=== PATIENT | female | born 1985 | race African-American/Black ===

== ENCOUNTER 2016-04-16 22:22 | Emergency (ER) | payer OTHER ==
[2016-04-16 22:56] VITALS: BP 120/67; PULSE 82; TEMP 98.2; BMI 23.3
--- NOTE | 2016-04-16 23:47 | PDOC ---
History of Present Illness - General Chief Complaint: Cold Symptoms Stated Complaint: COLD SYMPTOMS Time Seen by Provider: 04/16/16 23:44 History Source: Patient Exam Limitations: No Limitations - History of Present Illness Timing/Duration: reports: week Possible Cause: Yes: no prior episodes Associated Symptoms: reports: cough. denies: earache, fever/chills, nasal drainage, shortness of breath, sinus infection, sore throat Past History - Travel Traveled outside of the country in the last 30 days: No Close contact w/someone who was outside of country & ill: No - Past Medical History Allergies/Adverse Reactions: Allergies Allergy/AdvReac Type Severity Reaction Status Date / Time Penicillins Allergy Verified 04/16/16 22:53 Home Medications: Ambulatory Orders Valacyclovir HCl [Valtrex -] 500 mg PO DAILY 04/16/16 Other medical history: denies - Psycho/Social/Smoking Cessation Hx Anxiety: No Suicidal Ideation: No Smoking History: Current every day smoker Have you smoked in the past 12 months: Yes Number of Cigarettes Smoked Daily: 10 Information on smoking cessation initiated: Yes 'Breaking Loose' booklet given: 04/16/16 Hx Alcohol Use: Yes Drug/Substance Use Hx: Yes Substance Use Type: Marijuana Respiratory Specific PMHX - Complaint Specific PMHX Angina: No Bronchitis: No Pneumonia: No Review of Systems - Review of Systems Able to Perform ROS?: Yes Comments:: 04/16/16 23:45 CONSTITUTIONAL: Absent: fever, chills, diaphoresis, generalized weakness, malaise, loss of appetite HEENT: Absent: rhinorrhea, nasal congestion, throat pain, throat swelling, difficulty swallowing, mouth swelling, ear pain, eye pain, visual Changes CARDIOVASCULAR: Absent: chest pain, loss of consciousness, palpitations, irregular heart rate, peripheral edema RESPIRATORY: +cough Absent: shortness of breath, dyspnea with exertion, orthopnea, wheezing, stridor, hemoptysis GASTROINTESTINAL: Absent: abdominal pain, abdominal distension, nausea, vomiting, diarrhea, constipation, melena, hematochezia GENITOURINARY: Absent: dysuria, frequency, urgency, hesitancy, hematuria, flank pain, genital pain MUSCULOSKELETAL: Absent: myalgia, arthralgia, joint swelling SKIN: Absent: rash, itching, pallor HEMATOLOGIC/IMMUNOLOGIC: Absent: easy bleeding, easy bruising, lymphadenopathy, frequent infections ENDOCRINE: Absent: unexplained weight gain, unexplained weight loss, heat intolerance, cold intolerance NEUROLOGIC: Absent: headache, focal weakness or paresthesias, dizziness, unsteady gait, seizure, mental status changes, bladder or bowel incontinence PSYCHIATRIC: Absent: anxiety, depression, suicidal or homicidal ideation, hallucinations. Is the patient limited Thai proficient: No *Physical Exam - Vital Signs Last Vital Signs Temp Pulse Resp BP Pulse Ox 98.2 F 82 18 120/67 84 L 04/16/16 22:54 04/16/16 22:54 04/16/16 22:54 04/16/16 22:54 04/16/16 22:54 - Physical Exam Comments: 04/16/16 23:45 GENERAL: Well developed, well nourished. Awake and alert. No acute distress. HEENT: Normocephalic, atraumatic. PERRLA, EOMI. No conjunctival pallor. Sclera are non- icteric. Moist mucous membranes. Oropharynx is clear. NECK: Supple. Full ROM. No JVD. Carotid pulses 2+ and symmetric, without bruits. No thyromegaly. No lymphadenopathy. CARDIOVASCULAR: Regular rate and rhythm. No murmurs, rubs, or gallops. Distal pulses are 2+ and symmetric. PULMONARY: No evidence of respiratory distress. Lungs clear to auscultation bilaterally. No wheezing, rales or rhonchi. ABDOMINAL: Soft. Non-tender. Non-distended. No rebound or guarding. No organomegaly. Normoactive bowel sounds. MUSCULOSKELETAL Normal range of motion at all joints. No bony deformities or tenderness. No CVA tenderness. EXTREMITIES: No cyanosis. No clubbing. No edema. No calf tenderness. SKIN: Warm and dry. Normal capillary refill. No rashes. No jaundice. NEUROLOGICAL: Alert, awake, appropriate. Cranial nerves 2-12 intact. No deficits to light touch and temperature in face, upper extremities and lower extremities. No motor deficits in the in face, upper extremities and lower extremities. Normoreflexic in the upper and lower extremities. Normal speech. Toes are down- going bilaterally. Gait is normal without ataxia. PSYCHIATRIC: Cooperative. Good eye contact. Appropriate mood and affect. Progress Note - Progress Note Progress Note: 30-year-old female presents to the emergency department complaining of an intermittent cough 1 week. Patient states when she initially had the cough, she felt worse and has been taking [id number] medication which helped. Patient came in today because the cough did not 100% subside but is getting close. She denies any fever, chills, nauseavomiting/diarrhea, sore throat, rhinorrhea, nasal congestion, sore throat chest pain, shortness of breath, abdominal pains, flank pain, vaginal discharge. Patient denies any other complaints. Patient has been eating and drinking without any difficulties. *DC/Admit/Observation/Transfer Diagnosis at time of Disposition: Viral infection, Bronchitis - Discharge Dispostion Disposition: HOME - Patient Instructions Printed Discharge Instructions: DI for Acute Bronchitis Additional Instructions: Increase fluids Rest Over the counter medication Follow up with your physician this week Return back to the ER for severe/persistent or worsening symptoms
== END 2016-04-17 00:02 | disposition home or self-care (01) ==
LOC: JERFT 22:22
DX: J20.9 Acute bronchitis, unspecified (principal)
CPT/HCPCS: 99281-25

== ENCOUNTER 2016-07-10 20:47 | Emergency (ER) | payer OTHER ==
[2016-07-10 21:07] VITALS: BP 114/66; PULSE 93; TEMP 98.1; BMI 25.4
[2016-07-10] MEDS ORDERED: TOBRAMYCIN 0.3% OPHTH SOLN 5 ML BOTTLE OS ONE (21:26)
--- NOTE | 2016-07-10 21:29 | PDOC ---
History of Present Illness - General Chief Complaint: Eye Problem Stated Complaint: EYE PROBLEM Time Seen by Provider: 07/10/16 21:12 History Source: Patient Exam Limitations: No Limitations - History of Present Illness Initial Comments: 07/10/16 21:27 CHIEF COMPLAINT: Eye pain HISTORY OF PRESENT ILLNESS: This is an otherwise healthy 30 year old female who presents for evaluation of one week of left upper eyelid pain and swelling. She noticed a "bump" on the eyelid a few days ago. She has eye redness and crusting discharge in the morning. She denies fevers/chills. She has been doing warm compresses all week without relief. REVIEW OF SYSTEMS: GENERAL/CONSTITUTIONAL: No fever or chills. No weakness. No weight change. HEAD, EYES, EARS, NOSE AND THROAT: See HPI. SKIN: No rash or easy bruising. NEUROLOGIC: No headache, vertigo, loss of consciousness, or loss of sensation. HEMATOLOGIC/LYMPHATIC: No anemia, easy bleeding, or history of blood clots. ALLERGIC/IMMUNOLOGIC: No hives or skin allergy. No latex allergy. PHYSICAL EXAM: GENERAL: The patient is awake, alert, and fully oriented, in no acute distress. ENT: Hordeolum externum left upper lid with mild erythema and swelling. Pupils equal, round and reactive to light, extraocular movements intact, sclera anicteric, conjunctiva clear. Neck supple. NEUROLOGICAL: Normal speech, normal gait. CN II-XII grossly intact. PSYCH: Normal mood, normal affect. SKIN: Warm, dry, normal turgor, no rashes or lesions noted. Past History - Past Medical History Allergies/Adverse Reactions: Allergies Allergy/AdvReac Type Severity Reaction Status Date / Time Penicillins Allergy Verified 07/10/16 21:04 Home Medications: Ambulatory Orders Valacyclovir HCl [Valtrex -] 500 mg PO DAILY 04/16/16 - Psycho/Social/Smoking Cessation Hx Anxiety: No Suicidal Ideation: No Smoking History: Current every day smoker Have you smoked in the past 12 months: Yes Number of Cigarettes Smoked Daily: 10 Information on smoking cessation initiated: No 'Breaking Loose' booklet given: 04/16/16 Hx Alcohol Use: No Drug/Substance Use Hx: No Substance Use Type: Marijuana *Physical Exam - Vital Signs Last Vital Signs Temp Pulse Resp BP Pulse Ox 98.1 F 93 H 12 114/66 100 07/10/16 21:05 04/04/17 21:05 07/10/16 21:05 07/10/16 21:05 07/10/16 21:05 Medical Decision Making - Medical Decision Making 07/10/16 21:32 A/P: 30 year old female with hordeolum externum, reports symptoms of conjunctivitis as well. -Continue warm compresses -Add abx gtts -Followup instructions and return precautions reviewed *DC/Admit/Observation/Transfer Diagnosis at time of Disposition: Hordeolum externum left upper eyelid - Discharge Dispostion Disposition: HOME Condition at time of disposition: Stable Admit: No - Referrals Referrals: Jayson Ayala MD [Staff Physician] - 1 week (Ophthalmology if not improving) - Patient Instructions Printed Discharge Instructions: DI for Hordeolum Additional Instructions: -Apply warm compresses to the eye for 15 minutes at a time 5 times a day -Wash sheets/pillowcases/towels in hot water -Use tobramycin eye drops - 1 drop in the left eye every 4 hrs -Follow up with ophthalmology if not improving (referral enclosed) -Return here for fever, redness around the eye, change in your vision, or any other concerning symptoms - Post Discharge Activity Work/School Note: Back to School
== END 2016-07-10 22:23 | disposition home or self-care (01) ==
LOC: JERFT 20:47
DX: H00.014 Hordeolum externum left upper eyelid (principal); F17.210 Nicotine dependence, cigarettes, uncomplicated
CPT/HCPCS: 99281-25